=== PATIENT | female | born 1925 | race Caucasian/White ===

== ENCOUNTER → 2017-03-20 | Outpatient (CLI) | payer OTHER ==
[~2017-03-20] MED LIST: CALCIUM 500 + D1 TAB PO; CIPRO PO; EC-NAPROSYN500 MG PO; FLAGYL PO; LEVAQUIN750 MG PO; LORTAB 10-5001 EACH PO; LORTAB 7.5-5001 TAB PO; ZOFRAN8 MG PO; ZOFRANODT PO
--- NOTE | ~2017-03-20 | US77 ---
[facility] A Service of [facility] RADIOLOGY TEXT RESULTS PATIENT: LIZZ GARCIA LOCATION: [facility] : [birth year] UNIT #: [id number] AGE: [address]: Delvis Sullivan MD SEX: F ORDER DR: [id number] [facility] [address] [place], [place] [address] [id number] O MR#: [id number] Acc #: [id number] NAME: LIZZ GARCIA : 1925 SEX: F STUDY DATE/TIME: 03/20/2017 12:52 UNIT: [facility] ROOM: STUDY DESCRIPTION: US Kidney Bilateral Complete Attending Physician: Delvis Sullivan M.D. Referring Physician: Delvis Sullivan M.D. Ordering Physician: Delvis Sullivan M.D. Primary Care Physician: Tahmina Max M.D. MEDICAL IMAGING REPORT This report is preliminary unless electronic signature is present EXAM Renal ultrasound INDICATIONS Frequent urination for the past 6-7 months. PROCEDURE Salmon-scale and Doppler imaging of the kidneys and bladder. COMPARISON None. FINDINGS Right kidney measures 10.8 cm. There is a 4.9 cm cyst in the right kidney. Left kidney measures 10.3 cm. No hydronephrosis. Unremarkable bladder. IMPRESSION 4.9 cm cyst in the right kidney. Otherwise negative renal ultrasound Dictated by... William Worley M.D. THIS IS AN ELECTRONICALLY VERIFIED REPORT William Worley M.D. at 03/24/2017 11:08 AM JOE/jennifer TD: 03/20/2017 17:48 JOB #: [id number] MEDICAL IMAGING REPORT Page 1 of 1 COPY
== END | disposition home or self-care (01) ==
LOC: CGUS 12:27
DX: N39.0 Urinary tract infection, site not specified (principal); N28.1 Cyst of kidney, acquired
CPT/HCPCS: 76770